=== PATIENT | female | born 1975 | race Caucasian/White ===

== ENCOUNTER 2017-10-30 02:51 | Emergency (ER) | payer MEDICARE ==
[~2017-10-30] VITALS: Ht 152.4 cm; Wt 59.4 kg
[~2017-10-30 02:51] MED LIST: ACETAMINOPHEN-1 EAC1 PO; ACID CONTROL20 MG; ALAVERT10 MG PO; ALBUTEROL INH; ALLERGY RELIEF10 M3 PO; AMBIEN 5 MG TABL5 M1 PO; BACTRIM DS TAB1 EACH PO; CARAFATE 1 GM TA1 G1 PO; CELEBREX 200 M200 M1 PO; CELECOXIB100 MG PO; CELEXA 20 MG TA20 M1; CLEOCIN HCL150 MG PO; CLEOCIN HCL300 MG PO; CLONAZEPAM 1 MG1 M1; COMBIVENT; CYCLOBENZAPRINE10 MG PO; D-20002000 UNIT; EXCEDRIN CAPLE1 EACH; FLEXERIL PO; FLONASE 0.05%50 MCG; FOLIC ACID1 MG PO; HYDROCODON-ACE1 EAC8 PO; HYDROCODONE-AP1 EAC6 PO; KEFLEX500 MG PO; LEVAQUIN 750 M750 MG PO; LEVOTHYROXIN0.112 M1 PO; LEVOTHYROXIN0.137 M1 PO; LIORESAL 10 MG10 MG PO; LOPRESSOR25 PO; MEDROLDOSEPACK PO; METHOTREXATE 22.5 M1 PER TUBE; METHOTREXATE 22.5 M1 PO; METOPROLOL SUCC25 M1 PO; NAPROSYN500 MG PO; NEURONTIN 300300 M1 PO; NORCO 5-325 TA1 EACH PO; OMEPRAZOLE20 MG PO; OMEPRAZOLE40 MG PO; ONDANSETRON HCL4 M2 PO; PAXIL10 MG PO; PERCOCET PO; PREDNISOLONE 5 M5 M1 PO; PREDNISONE 10 M10 M1 PO; PREDNISONE 10 M10 MG PO; PREDNISONE 5 MG5 M1 PO; PRILOSEC40 MG PO; PROAIR RESPICL90 MCG IH; SINGULAIR 10 MG10 M1; SPIRIVA INH; SPIRIVA18 MCG IH; SULFASALAZINE500 M4 PO; SULFAZINE EC500 MG; TOBRAMYCIN SULFA5 ML OPHTHALMIC; TOPROL XL25 MG; TRAMADOL 50 MG50 MG PO; ULTRAM50 MG PO; VENLAFAXIN75 MG/1 T2 PO; VENTOLIN HFA 1818 GM INH; VITAMIN D 5050000 I1; VITAMIN D 5050000 I1 PO; VOLTAREN GEL 1100 G2 TOP; ZANTAC 150MG T150 MG PO; ZPAK PO
[2017-10-30 04:30] LABS: ABSOLUTE BASOPHILS 0.1 thou/uL (0.0-0.2); ABSOLUTE EOSINOPHILS 0.4 thou/uL (0.0-0.7); ABSOLUTE LYMPHOCYTES 3.4 thou/uL (0.8-5.3); ABSOLUTE MONOCYTES 0.6 thou/uL (0.0-1.2); ABSOLUTE NEUTROPHILS 7.1 thou/uL (1.6-8.1); BASOPHILS 0.5 %; HEMATOCRIT 41.8 % (37.0-47.0); HEMOGLOBIN 14.4 gm/dL (12.0-15.0); LYMPHOCYTES 29.6 %; MCH 30.9 pg (26.0-34.0); MCHC 34.4 g/dL (28.0-37.0); MCV 89.8 fL (80.0-100.0); MONOCYTES 5.2 %; MPV 7.2 fl. (7.2-11.1); NUCLEATED RBCS 0 /100WBC; PLATELET COUNT* 333 thou/uL (150-400); POLYS 61.7 %; RBC 4.65 mil/uL (4.20-5.00); RDW-CV 13.8 % (10.5-14.5); WBC 11.5 thou/uL (4.0-11.0)
[2017-10-30 04:54] LABS: CALCIUM 8.7 mg/dL (8.5-10.1); CREATININE 1.1 mg/dL (0.6-1.3); POTASSIUM 3.7 mmol/L (3.5-5.1)
[2017-10-30 04:59] LABS: ALBUMIN 3.3 g/dL (3.4-5.0); TOTAL BILIRUBIN 0.2 mg/dL (<0.1-1.0); TOTAL PROTEIN 7.5 g/dL (6.4-8.2)
[2017-10-30 05:38] LABS: AMP/METHAMP POSITIVE (Negative); BARBITURATES Negative (Negative); BENZODIAZEPINES Negative (Negative); COCAINE Negative (Negative); METHADONE Negative (Negative); OPIATES Negative (Negative); PCP Negative (Negative); THC Negative (Negative)
[2017-10-30 05:50] LABS: URINE BILIRUBIN NEGATIVE (Negative); URINE BLOOD TRACE (Negative); URINE CLARITY CLEAR; URINE COLOR YELLOW; URINE GLUCOSE-RANDOM NEGATIVE (Negative); URINE KETONES NEGATIVE (Negative); URINE LEUKOCYTES-REFLEX NEGATIVE (Negative); URINE NITRITE-REFLEX NEGATIVE (Negative); URINE PROTEIN NEGATIVE (Negative); URINE SPECIFIC GRAVITY 1.015 (1.005-1.030); URINE UROBILINOGEN 0.2 E.U./dl (0.2-1.0)
[2017-10-30 06:11] VITALS: BP 124/84
--- NOTE | 2017-10-30 11:50 | EKG ---
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
== END 2017-10-30 06:11 | disposition home or self-care (01) ==
LOC: M.ERS 02:51
PROVIDERS: Personal Emergency Response Attendant
DX: R51 Headache (principal); E03.9 Hypothyroidism, unspecified; F41.9 Anxiety disorder, unspecified; M06.9 Rheumatoid arthritis, unspecified; I10 Essential (primary) hypertension; Z90.711 Acquired absence of uterus with remaining cervical stump

== ENCOUNTER 2017-12-25 14:56 | Emergency (ER) | payer MEDICARE ==
[~2017-12-25] VITALS: Ht 152.4 cm; Wt 59.4 kg
[2017-12-25] MEDS ORDERED: UNICOMPLEX M TA1 TA1 PO (15:09)
[2017-12-25 16:12] VITALS: BP 135/96
== END 2017-12-25 16:12 | disposition home or self-care (01) ==
LOC: M.ERS 14:56
DX: S60.211A Contusion of right wrist, initial encounter (principal); F41.9 Anxiety disorder, unspecified; E03.9 Hypothyroidism, unspecified; I10 Essential (primary) hypertension; M06.9 Rheumatoid arthritis, unspecified; Z90.711 Acquired absence of uterus with remaining cervical stump; Z88.6 Allergy status to analgesic agent; Z88.8 Allergy status to other drugs, medicaments and biological substances; F17.210 Nicotine dependence, cigarettes, uncomplicated; W22.8XXA Striking against or struck by other objects, initial encounter; Y93.89 Activity, other specified; Y92.89 Other specified places as the place of occurrence of the external cause; Y99.8 Other external cause status

== ENCOUNTER 2018-10-01 03:45 | Emergency (ER) | payer MEDICARE ==
[~2018-10-01] VITALS: Ht 154.9 cm; Wt 57.6 kg
[~2018-10-01 03:45] MED LIST changes: +UNICOMPLEX M TA1 TA1 PO
[2018-10-01] MEDS ORDERED: AZULFIDINE500 MG PO (03:53)
[2018-10-01] MEDS ORDERED: LAMICTAL (GREE1 EACH PO (03:55)
[2018-10-01] MEDS ORDERED: COLACE100 MG PO ×2 (03:55→03:56)
[2018-10-01] MEDS ORDERED: CLONAZEPAM 0.50.5 M1 PO (03:56)
[2018-10-01] MEDS ORDERED: ACCUNEB SO1.25 MG/1 INH (03:56)
[2018-10-01] MEDS ORDERED: NICOTINE TRANSD21 M1 (03:56)
[2018-10-01] MEDS ORDERED: VOLTAREN GEL 1100 G2 TOP (03:57)
[2018-10-01] MEDS ORDERED: NEURONTIN 300300 M1 PO (03:57)
[2018-10-01] MEDS ORDERED: SYNTHROID88 MCG PO (03:57)
[2018-10-01] MEDS ORDERED: SULFASALAZINE500 M4 PO (03:58)
[2018-10-01] MEDS ORDERED: PROAIR RESPICL90 MCG INH (03:58)
[2018-10-01 04:26] LABS: ABSOLUTE LYMPHOCYTES 2.8 thou/uL (0.8-5.3); ABSOLUTE MONOCYTES 0.5 thou/uL (0.0-1.2); ABSOLUTE NEUTROPHILS 2.7 thou/uL (1.6-8.1); BASOPHILS 0.8 %; EOSINOPHILS 0.1 %; HEMOGLOBIN 12.8 gm/dL (12.0-15.0); LYMPHOCYTES 45.6 %; MCH 29.5 pg (26.0-34.0); MCHC 32.8 g/dL (28.0-37.0); MCV 90.1 fL (80.0-100.0); MONOCYTES 8.4 %; MPV 6.4 fl. (7.2-11.1); NUCLEATED RBCS 0 /100WBC; PLATELET COUNT* 273 thou/uL (150-400); POLYS 45.1 %; RBC 4.33 mil/uL (4.20-5.00); RDW-CV 15.3 % (10.5-14.5); WBC 6.1 thou/uL (4.0-11.0)
[2018-10-01 04:45] LABS: URINE BILIRUBIN NEGATIVE (Negative); URINE BLOOD NEGATIVE (Negative); URINE CLARITY CLEAR; URINE COLOR YELLOW; URINE GLUCOSE-RANDOM NEGATIVE (Negative); URINE KETONES NEGATIVE (Negative); URINE PROTEIN 2+ (Negative); URINE SPECIFIC GRAVITY >= 1.030 (1.005-1.030); URINE UROBILINOGEN 0.2 E.U./dl (0.2-1.0)
[2018-10-01 04:51] LABS: CALCIUM 8.8 mg/dL (8.5-10.1); CREATININE 0.8 mg/dL (0.6-1.3); POTASSIUM 3.5 mmol/L (3.5-5.1)
[2018-10-01 04:53] LABS: URINE LEUKOCYTES-REFLEX 2+ (Negative); URINE NITRITE-REFLEX POSITIVE (Negative)
[2018-10-01 04:55] LABS: ALBUMIN 3.6 g/dL (3.4-5.0); TOTAL BILIRUBIN 0.3 mg/dL (<0.1-1.0); TOTAL PROTEIN 7.7 g/dL (6.4-8.2)
[2018-10-01] MEDS ORDERED: HYDROCODON-ACE1 EAC7 PO (05:22)
[2018-10-01] MEDS ORDERED: BACTRIM DS TAB1 EACH PO (05:22)
[2018-10-01] MEDS ORDERED: ZOFRAN4 MG PO (05:22)
[2018-10-01 05:31] VITALS: BP 129/77
[2018-10-01 06:23] LABS: SQUAMOUS >10 Many /LPF (0-3)
[2018-10-01 06:24] LABS: CASTS None Seen /LPF (None Seen); MUCUS >6 Heavy strn/LPF (None Seen); URINE WBC-REFLEX >25 Many /HPF (0-5)
[2018-10-01 06:25] LABS: BACTERIA-REFLEX >30 Many /HPF (None Seen); CRYSTALS None Seen /LPF (None Seen); URINE RBC None Seen /HPF (0-2)
== END 2018-10-01 05:35 | disposition home or self-care (01) ==
LOC: M.ERS 03:45
PROVIDERS: Emergency Medicine
DX: N39.0 Urinary tract infection, site not specified (principal); R11.2 Nausea with vomiting, unspecified; E03.9 Hypothyroidism, unspecified; F41.9 Anxiety disorder, unspecified; M06.9 Rheumatoid arthritis, unspecified; I10 Essential (primary) hypertension; F17.210 Nicotine dependence, cigarettes, uncomplicated; Z98.890 Other specified postprocedural states; Z90.711 Acquired absence of uterus with remaining cervical stump; Z88.6 Allergy status to analgesic agent; Z88.8 Allergy status to other drugs, medicaments and biological substances

== ENCOUNTER 2019-10-19 18:57 | Emergency (ER) | payer MEDICARE, MEDICAID ==
[~2019-10-19] VITALS: Ht 152.4 cm; Wt 68.0 kg
[~2019-10-19 18:57] MED LIST changes: +ACCUNEB SO1.25 MG/1 INH; +AZULFIDINE500 MG PO; +CLONAZEPAM 0.50.5 M1 PO; +COLACE100 MG PO; +HYDROCODON-ACE1 EAC7 PO; +LAMICTAL (GREE1 EACH PO; +NICOTINE TRANSD21 M1; +PROAIR RESPICL90 MCG INH; +SYNTHROID88 MCG PO; +ZOFRAN4 MG PO
[2019-10-19] MEDS ORDERED: NYSTATIN100000 UNI SW&SWALLOW (19:17)
[2019-10-19 19:27] LABS: ABSOLUTE BASOPHILS 0.1 thou/uL (0.0-0.2); ABSOLUTE EOSINOPHILS 0.3 thou/uL (0.0-0.7); ABSOLUTE LYMPHOCYTES 3.1 thou/uL (0.8-5.3); ABSOLUTE MONOCYTES 0.7 thou/uL (0.0-1.2); ABSOLUTE NEUTROPHILS 8.4 thou/uL (1.6-8.1); BASOPHILS 0.8 %; HEMATOCRIT 46.1 % (37.0-47.0); HEMOGLOBIN 15.8 gm/dL (12.0-15.0); LYMPHOCYTES 24.7 %; MCH 30.7 pg (26.0-34.0); MCHC 34.4 g/dL (28.0-37.0); MCV 89.2 fL (80.0-100.0); MONOCYTES 5.7 %; MPV 6.5 fl. (7.2-11.1); NUCLEATED RBCS 0 /100WBC; PLATELET COUNT* 412 thou/uL (150-400); POLYS 66.8 %; RBC 5.17 mil/uL (4.20-5.00); RDW-CV 13.4 % (10.5-14.5); WBC 12.5 thou/uL (4.0-11.0)
[2019-10-19 19:45] LABS: CREATININE 0.9 mg/dL (0.6-1.3); POTASSIUM 3.6 mmol/L (3.5-5.1)
[2019-10-19 19:50] LABS: ALBUMIN 4.1 g/dL (3.4-5.0); TOTAL BILIRUBIN 0.4 mg/dL (<0.1-1.0); TOTAL PROTEIN 8.8 g/dL (6.4-8.2)
[2019-10-19 19:59] LABS: URINE BLOOD TRACE (Negative); URINE CLARITY CLEAR; URINE COLOR YELLOW; URINE GLUCOSE-RANDOM NEGATIVE (Negative); URINE KETONES TRACE (Negative); URINE LEUKOCYTES-REFLEX NEGATIVE (Negative); URINE NITRITE-REFLEX NEGATIVE (Negative); URINE PROTEIN TRACE (Negative); URINE SPECIFIC GRAVITY >= 1.030 (1.005-1.030); URINE UROBILINOGEN 0.2 E.U./dl (0.2-1.0)
[2019-10-19 20:00] LABS: ICTOTEST (BILI CONFIRMATORY) Negative (Negative); URINE BILIRUBIN 1+ (Negative)
[2019-10-19] MEDS ORDERED: REGLAN 5 MG TAB5 MG PO ×2 (20:29→20:33)
[2019-10-19] MEDS ORDERED: FLUCONAZOLE200 MG PO (20:29)
[2019-10-19] MEDS ORDERED: ZOFRAN ODT4 MG PO (20:29)
[2019-10-19] MEDS ORDERED: REGLAN 10 MG TA10 MG PO (20:31)
[2019-10-19 20:44] VITALS: BP 138/87
== END 2019-10-19 20:45 | disposition home or self-care (01) ==
LOC: M.ERS 18:57
PROVIDERS: Physician Assistant
DX: B37.0 Candidal stomatitis (principal); R11.2 Nausea with vomiting, unspecified; I10 Essential (primary) hypertension; E03.9 Hypothyroidism, unspecified; M06.9 Rheumatoid arthritis, unspecified; F41.9 Anxiety disorder, unspecified; F17.210 Nicotine dependence, cigarettes, uncomplicated; Z98.51 Tubal ligation status; Z98.890 Other specified postprocedural states; Z90.710 Acquired absence of both cervix and uterus; Z88.6 Allergy status to analgesic agent; Z88.8 Allergy status to other drugs, medicaments and biological substances

== ENCOUNTER 2020-02-10 17:12 | Emergency (ER) | payer MEDICARE, MEDICAID ==
[~2020-02-10] VITALS: Ht 152.4 cm; Wt 77.1 kg
[~2020-02-10 17:12] MED LIST changes: +FLUCONAZOLE200 MG PO; +NYSTATIN100000 UNI SW&SWALLOW; +REGLAN 10 MG TA10 MG PO; +REGLAN 5 MG TAB5 MG PO; +ZOFRAN ODT4 MG PO
[2020-02-10] MEDS ORDERED: NAPROSYN500 MG PO (18:49)
[2020-02-10] MEDS ORDERED: TYLENOL WITH CO1 TA1 PO (18:49)
[2020-02-10 19:27] VITALS: BP 135/78
== END 2020-02-10 19:28 | disposition home or self-care (01) ==
LOC: M.ERS 17:12
DX: S90.32XA Contusion of left foot, initial encounter (principal); E03.9 Hypothyroidism, unspecified; I10 Essential (primary) hypertension; M06.9 Rheumatoid arthritis, unspecified; Z98.51 Tubal ligation status; Z98.890 Other specified postprocedural states; Z90.710 Acquired absence of both cervix and uterus; W22.8XXA Striking against or struck by other objects, initial encounter; Y93.89 Activity, other specified; Y92.89 Other specified places as the place of occurrence of the external cause; Y99.8 Other external cause status

== ENCOUNTER 2020-11-18 02:24 | Emergency (ER) | payer MEDICARE, MEDICAID ==
[~2020-11-18] VITALS: Ht 152.4 cm; Wt 63.5 kg
[~2020-11-18 02:24] MED LIST changes: +TYLENOL WITH CO1 TA1 PO
[2020-11-18 03:38] LABS: URINE BILIRUBIN NEGATIVE (Negative); URINE BLOOD 1+ (Negative); URINE CLARITY CLEAR; URINE COLOR YELLOW; URINE GLUCOSE-RANDOM NEGATIVE (Negative); URINE KETONES NEGATIVE (Negative); URINE LEUKOCYTES-REFLEX TRACE (Negative); URINE NITRITE-REFLEX NEGATIVE (Negative); URINE PROTEIN NEGATIVE (Negative); URINE UROBILINOGEN 0.2 E.U./dl (0.2-1.0)
[2020-11-18 04:03] LABS: HEMATOCRIT 38.1 % (37.0-47.0); HEMOGLOBIN 12.5 gm/dL (12.0-15.0); MCH 28.6 pg (26.0-34.0); MCHC 32.9 g/dL (28.0-37.0); MCV 86.8 fL (80.0-100.0); MPV 6.5 fl. (7.2-11.1); RBC 4.39 mil/uL (4.20-5.00); RDW-CV 13.5 % (10.5-14.5); WBC 12.9 thou/uL (4.0-11.0)
[2020-11-18 04:04] LABS: CASTS None Seen /LPF (None Seen); SQUAMOUS >10 Many /LPF (0-3)
[2020-11-18 04:05] LABS: BACTERIA-REFLEX 1-9 Few /HPF (None Seen); CRYSTALS None Seen /LPF (None Seen); URINE RBC 3-10 Few /HPF (0-2)
[2020-11-18 04:13] LABS: CALCIUM 8.6 mg/dL (8.5-10.1); CREATININE 0.7 mg/dL (0.6-1.3); POTASSIUM 3.4 mmol/L (3.5-5.1)
[2020-11-18] MEDS ORDERED: SULFASALAZINE500 M5 PO (04:46)
[2020-11-18] MEDS ORDERED: METHOTREXATE 22.5 MG PO (04:47)
[2020-11-18] MEDS ORDERED: PAROXETINE HCL20 MG PO (04:48)
[2020-11-18 05:19] VITALS: BP 108/68
[2020-11-19] MEDS ORDERED: LAMICTAL150 MG PO (03:22)
[2020-11-19] MEDS ORDERED: CLONAZEPAM 0.50.5 M1 PO (03:25)
== END 2020-11-18 05:19 | disposition home or self-care (01) ==
LOC: M.ERS 02:24
PROVIDERS: Personal Emergency Response Attendant
DX: J98.8 Other specified respiratory disorders (principal); E86.0 Dehydration; Z20.822 Contact with and (suspected) exposure to COVID-19; I10 Essential (primary) hypertension; M06.9 Rheumatoid arthritis, unspecified; E03.9 Hypothyroidism, unspecified; F17.210 Nicotine dependence, cigarettes, uncomplicated; Z98.51 Tubal ligation status; Z98.890 Other specified postprocedural states; Z90.710 Acquired absence of both cervix and uterus; Z88.6 Allergy status to analgesic agent; Z88.8 Allergy status to other drugs, medicaments and biological substances

== ENCOUNTER 2020-11-18 19:03 | Inpatient (IN) | payer MEDICARE, MEDICAID ==
[~2020-11-18] VITALS: Ht 152.4 cm; Wt 71.7 kg
[~2020-11-18 19:03] MED LIST changes: +METHOTREXATE 22.5 MG PO; +PAROXETINE HCL20 MG PO; +SULFASALAZINE500 M5 PO
[2020-11-18 19:23] VITALS: BP 130/84
[2020-11-18 20:52] LABS: ABSOLUTE BASOPHILS 0.1 thou/uL (0.0-0.2); ABSOLUTE EOSINOPHILS 0.3 thou/uL (0.0-0.7); ABSOLUTE LYMPHOCYTES 2.3 thou/uL (0.8-5.3); ABSOLUTE MONOCYTES 0.5 thou/uL (0.0-1.2); ABSOLUTE NEUTROPHILS 12.3 thou/uL (1.6-8.1); BASOPHILS 0.7 %; EOSINOPHILS 1.9 %; HEMOGLOBIN 12.4 gm/dL (12.0-15.0); LYMPHOCYTES 14.6 %; MCH 28.6 pg (26.0-34.0); MCHC 32.6 g/dL (28.0-37.0); MCV 87.6 fL (80.0-100.0); MONOCYTES 3.5 %; MPV 6.8 fl. (7.2-11.1); NUCLEATED RBCS 0 /100WBC; PLATELET COUNT* 270 thou/uL (150-400); POLYS 79.3 %; RBC 4.33 mil/uL (4.20-5.00); RDW-CV 13.4 % (10.5-14.5); WBC 15.5 thou/uL (4.0-11.0)
[2020-11-18 20:54] LABS: BE -1.8 mmol/L (-2 to +3); PCO2 37.3 mmHg (35.0-45.0)
[2020-11-18 20:57] LABS: CALCIUM 8.8 mg/dL (8.5-10.1); CREATININE 0.6 mg/dL (0.6-1.3); POTASSIUM 3.6 mmol/L (3.5-5.1)
[2020-11-18 21:01] LABS: ALBUMIN 2.8 g/dL (3.4-5.0); TOTAL BILIRUBIN 0.2 mg/dL (<0.1-1.0); TOTAL PROTEIN 7.3 g/dL (6.4-8.2)
[2020-11-18 22:14] LABS: URINE BILIRUBIN NEGATIVE (Negative); URINE BLOOD NEGATIVE (Negative); URINE CLARITY CLEAR; URINE COLOR YELLOW; URINE GLUCOSE-RANDOM NEGATIVE (Negative); URINE KETONES NEGATIVE (Negative); URINE LEUKOCYTES-REFLEX NEGATIVE (Negative); URINE NITRITE-REFLEX NEGATIVE (Negative); URINE PROTEIN NEGATIVE (Negative); URINE SPECIFIC GRAVITY 1.015 (1.005-1.030); URINE UROBILINOGEN 0.2 E.U./dl (0.2-1.0)
[2020-11-18 23:45] VITALS: BP 124/72
[2020-11-19 00:15] VITALS: BP 114/58
[2020-11-19] MEDS ORDERED: LAMICTAL150 MG PO (03:22)
[2020-11-19] MEDS ORDERED: CLONAZEPAM 0.50.5 M1 PO (03:25)
[2020-11-19 04:47] VITALS: BP 109/67
[2020-11-19 08:00] VITALS: BP 128/71
[2020-11-19 11:55] VITALS: BP 104/66
[2020-11-19 13:44] LABS: ABSOLUTE BASOPHILS 0.1 thou/uL (0.0-0.2); ABSOLUTE EOSINOPHILS 0.3 thou/uL (0.0-0.7); ABSOLUTE LYMPHOCYTES 2.4 thou/uL (0.8-5.3); ABSOLUTE MONOCYTES 0.5 thou/uL (0.0-1.2); ABSOLUTE NEUTROPHILS 7.8 thou/uL (1.6-8.1); BASOPHILS 0.7 %; EOSINOPHILS 2.7 %; HEMATOCRIT 36.9 % (37.0-47.0); LYMPHOCYTES 21.9 %; MCH 28.3 pg (26.0-34.0); MCHC 32.6 g/dL (28.0-37.0); MCV 86.9 fL (80.0-100.0); MONOCYTES 4.8 %; MPV 6.7 fl. (7.2-11.1); NUCLEATED RBCS 0 /100WBC; PLATELET COUNT* 302 thou/uL (150-400); POLYS 69.9 %; RBC 4.25 mil/uL (4.20-5.00); RDW-CV 13.7 % (10.5-14.5); WBC 11.2 thou/uL (4.0-11.0)
[2020-11-19 13:59] LABS: ALBUMIN 2.6 g/dL (3.4-5.0); CALCIUM 8.4 mg/dL (8.5-10.1); CREATININE 0.6 mg/dL (0.6-1.3); POTASSIUM 3.8 mmol/L (3.5-5.1); TOTAL BILIRUBIN 0.3 mg/dL (<0.1-1.0); TOTAL PROTEIN 6.9 g/dL (6.4-8.2)
--- NOTE | 2020-11-19 15:31 | EKG ---
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 : 1975 Requested By: Irene Mayorga Order Number: [id number] MD: Mook Patel Measurements Intervals [place] Rate: 95 P: 50 ID: [id number] QRS: 25 QRSD: 80 T: 46 QT: 323 QTc: 406 Interpretive Statements Sinus rhythm Borderline short ID interval Probable left atrial enlargement Low voltage, precordial leads Compared to ECG 10/30/2017 02:57:27 Low QRS voltage now present Electronically Signed On 11-19-2020 15:31:02 CUPOLA REPAIRER by Mook Patel [email or web address] <ELECTRONICALLY SIGNED> By: Mook Patel MD, FACC 11/19/20 1531 18 18 Mook Patel MD, FAC /EPI
--- NOTE | 2020-11-19 15:41 | 2DMMODE ---
[place] [address] 2 D/M-MODE ECHOCARDIOGRAM Name: NATALIA CABRERA Room: [address] IN [place].#: [id number] Admission: 11/18/20 Attend Phys: Marilyn Reid, Discharge: Date of : 73 Date of Service: 11/19/20 1540 Report #: [id number] THIS REPORT FOR: cc: SHELBY - No family physician/PCP SHELBY - No family physician/PCP Mook Patel MD [facility] ~ APPROVED REPORT Study performed: 11/19/2020 14:56:24 EXAM: Comprehensive 2D, Doppler, and color-flow Echocardiogram Patient Location: In-Patient Room #: 209 Status: routine BSA: 1.70 HR: 88 bpm BP: 104/66 mmHg Rhythm: NSR Other Information Study Quality: Good Indications Dyspnea 2D Dimensions IVSd: 10.64 (7-11mm) LVOT Diam: 18.35 (18-24mm) LVDd: 48.07 mm PWd: 9.62 (7-11mm) Ascending Ao: 28.86 (22-36mm) LVDs: 32.57 (25-40mm) Aortic Root: 26.06 mm Volumes Left Atrial Volume (Systole) LA ESV Index: 19.90 mL/m2 Aortic Valve AoV Peak Bubba.: 1.36 m/s AO Peak Gr.: 7.36 mmHg LVOT Max P.44 mmHg AO Mean Gr.: 4.13 mmHg LVOT Mean P.12 mmHg LVOT Max V: 1.05 m/s AO V2 VTI: 25.60 cm LVOT Mean V: 0.66 m/s VERNELL (VTI): 2.06 cm2 LVOT V1 VTI: 19.91 [place] [address] 2 D/M-MODE ECHOCARDIOGRAM Name: NATALIA CABRERA Room: [address] IN ..#: [id number] Admission: 11/18/20 Attend Phys: Marilyn Reid, Discharge: Date of : 73 Date of Service: 11/19/20 1540 Report #: [id number] Mitral Valve E/A Ratio: 1.26 MV Decel. Time: 186.47 ms MV E Max Bubba.: 1.14 m/s MV PHT: 54.08 ms MVA (PHT): 4.07 cm2 TDI E/Lateral E': 8.14 E/Medial E': 8.14 Medial E' Bubba.: 0.14 m/s Lateral E' Bubba.: 0.14 m/s Pulmonary Valve PV Peak Bubba.: 0.92 m/s PV Peak Gr.: 3.36 mmHg Tricuspid Valve RAP Estimate: 5.00 mmHg TR Peak Gr.: 26.86 mmHg RVSP: 32.00 mmHg PA Pressure: 32.00 mmHg Left Ventricle The left ventricle is normal size. There is normal LV segmental wall motion. There is normal left ventricular wall thickness. Left ventricular systolic function is normal. The left ventricular ejection fraction is within the normal range. LVEF is 60-65%. The left ventricular diastolic function is normal. Right Ventricle The right ventricle is normal size. The right ventricular systolic function is normal. Atria The left atrium size is normal. The right atrium size is normal. Aortic Valve The aortic valve is normal in structure. No aortic regurgitation is present. There is no aortic valvular stenosis. Mitral Valve The mitral valve is normal in structure. Trace mitral regurgitation. No evidence of mitral valve stenosis. Tricuspid Valve The tricuspid valve is normal in structure. Trace tricuspid regurgitation. [place] [address] 2 D/M-MODE ECHOCARDIOGRAM Name: NATALIA CABRERA Room: [address] IN ..#: [id number] Admission: 11/18/20 Attend Phys: Marilyn Reid, Discharge: Date of : 73 Date of Service: 11/19/20 1540 Report #: [id number] Pulmonic Valve The pulmonary valve is normal in structure. There is no pulmonic valvular regurgitation. Great Vessels The aortic root is normal in size. IVC is normal in size and collapses >50% with inspiration. Pericardium There is no pericardial effusion. <Conclusion> The left ventricle is normal size. There is normal left ventricular wall thickness. Left ventricular systolic function is normal. The left ventricular ejection fraction is within the normal range. LVEF is 60-65%. The left ventricular diastolic function is normal. The right ventricle is normal size. The left atrium size is normal. The aortic valve is normal in structure. The mitral valve is normal in structure. Trace mitral regurgitation. The tricuspid valve is normal in structure. IVC is normal in size and collapses >50% with inspiration. There is no pericardial effusion. There is normal LV segmental wall motion. <ELECTRONICALLY SIGNED> By: Mook Patel MD, FACC 11/19/20 1540 1540 1540 Mook Patel MD, FACC /INF
--- NOTE | 2020-11-19 16:30 | CON ---
[address] [address] CONSULTATION Name: NATALIA CABRERA Room: [address] IN M.R.#: [id number] Admission: 11/18/20 Attend Phys: Marilyn Reid MD Discharge: Date of : 73 Report #: [id number] THIS REPORT FOR: cc: SHELBY - No family physician/PCP FAM - No family physician/PCP ~ Eddi Monge MD DATE OF SERVICE: 11/19/2020 REQUESTING PHYSICIAN: Dr. Sylvester Alexis. INDICATION FOR CONSULTATION: Pulmonary infiltrates and shortness of breath. HISTORY OF PRESENT ILLNESS: This is a 45-year-old female. She is an active smoker and has been smoking for several decades, is currently smoking about a pack a day. 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 She previously was diagnosed with interstitial pneumonia. 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 However, as below, I do not see findings consistent with this on her CT performed in 2015 or a chest x-ray was performed in 2018. The patient has not been having increasing shortness of breath for the last several days. She does report that she also has had a significant cough. She does report of sputum production. She was not able to describe the sputum. She does report that she had chills and fatigue, but does not state that she recorded any fever. She came to the emergency room, was subsequently discharged, but came back with persistent complaints and this time was admitted. The patient currently is on 3 liters nasal cannula. She has had low-grade elevation in temperature to 37.[address] chest does show fairly extensive interstitial infiltrates, which have an upper lobe predominance. Her COVID-19 antigen was negative, the PCR is pending. She does not report swelling of lower extremities. There is no calf pain. She at this time, is answering to the negative for 12 questions for review of systems. PAST MEDICAL HISTORY: Rheumatoid arthritis, does receive her Humira injections and therefore is immune suppressed; interstitial pneumonitis 11 years ago, not fully clear to me if this refers to desquamative interstitial pneumonitis; history of lung nodules, adrenal mass, tubal ligation, 2 C-sections, hysterectomy, hypothyroidism, hypertension, borderline diabetes. I do not have a measure of left ventricular ejection fraction [place] [address] CONSULTATION Name: NATALIA CABRERA Room: [address] IN [facility].#: [id number] Admission: 11/18/20 Attend Phys: Marilyn Reid MD Discharge: Date of : 73 Report #: [id number] SOCIAL HISTORY: Extensive history of smoking several decades, still smoking 1 pack a day. No known history of heavy alcohol use or illegal drug use. CURRENT MEDICATIONS: List in [facility] reviewed. HOME MEDICATIONS: List also in [facility] reviewed. ALLERGIES: DARVOCET, NYSTATIN AND MEPERIDINE. FAMILY HISTORY: There is no known history of COVID-19 in her family. PHYSICAL EXAMINATION: GENERAL: She was alert, awake and oriented; however, provided a rather limited history. Did not appear to be in any distress. VITAL SIGNS: Has a pulse of 96 with a blood pressure of 104/66. She is on 3 liters nasal cannula, previously O2 saturation 91% on this therapy, but now coming up to 98, respiratory rate mildly elevated to 20. Temperature this morning 37.7. HEENT: Head is normocephalic and atraumatic. Pupils are equal and reactive. NECK: Does not show raised JVP, asymmetry, mass or lymph nodes. CHEST: Symmetrical expansion on inspection and palpation. On auscultation, breath sounds are bilaterally equal. There are occasional scattered rales. HEART: Regular. There is no murmur. ABDOMEN: Soft and nontender. EXTREMITIES: Lower extremities show no edema, no calf tenderness. SKIN: Dry and intact. NEUROLOGICAL: Moves all extremities bilaterally equally and spontaneously with no focal deficit identified. LABORATORY DATA: The patient's lab work as well as CT chest which is without contrast and arterial blood gases as well as chest x-ray in [facility] reviewed. ASSESSMENT AND PLAN: 1. Acute respiratory insufficiency whilst the possibility of recurrence of interstitial pneumonitis cannot be completely ruled out. It appears more likely to me that we are dealing with an acute process, likely either infectious or pulmonary edema can also not be fully ruled out. 2. Interstitial pulmonary infiltrates. 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 At this time, while I would continue with corticosteroids, I would evaluate more for an acute process. I did cut down the steroid dose. I ordered repeat labs and a chest x-ray. We will reassess after this. Meanwhile more cultures and serologies are sent. We will also do an [address] [address] CONSULTATION Name: NATALIA CABRERA Room: [address] IN [place]#: [id number] Admission: 11/18/20 Attend Phys: Marilyn Reid MD Discharge: Date of : 73 Report #: [id number] echo. I discontinued IV fluids considering the patient is immune suppressed. If the chest x-ray today is not better, then I will be inclined to broaden antibiotics, to add pseudomonas coverage possibly by switching ceftriaxone over to cefepime. 3. Bronchospasm/suspected underlying chronic obstructive pulmonary disease. I feel that there is a component of this, therefore I did order Naresh and daiana Krueger and for this reason, I do recommend that if her COVID PCR is not back soon then she be transferred over to a negative pressure room. Will need a pulmonary function test as an outpatient later. Discussion regarding steroid as above. 4. History of rheumatoid arthritis and therefore immune suppressed as on Humira injections. 5. Active smoker. 6. Deep vein thrombosis prophylaxis/evaluation for thromboembolic phenomena/evaluation for cardiac function. I ordered an echo. I also ordered a D-dimer, currently on Lovenox prophylactic dose. Will consider obtaining a CTA chest if there is a significant elevation in right heart pressures and if the D-dimer is elevated. Thanks for this consultation. <ELECTRONICALLY SIGNED> By: Eddi Monge MD 11/19/20 1630 1326 1622Aquinton Monge MD /nt
[2020-11-19 16:39] VITALS: BP 101/55
[2020-11-19 19:50] VITALS: BP 97/53
[2020-11-19 22:03] LABS: AMP/METHAMP POSITIVE (Negative); BARBITURATES Negative (Negative); BENZODIAZEPINES Negative (Negative); COCAINE Negative (Negative); METHADONE Negative (Negative); OPIATES Negative (Negative); PCP Negative (Negative); THC Negative (Negative)
[2020-11-20] VITALS (8 sets, daily range): BP systolic 95–160; BP diastolic 55–77
[2020-11-20 03:06] LABS: GLYCOHEMOGLOBIN (HGB A1C) 6.1 % (4.8-5.6)
[2020-11-20 04:38] LABS: ABSOLUTE LYMPHOCYTES 1.1 thou/uL (0.8-5.3); ABSOLUTE MONOCYTES 0.1 thou/uL (0.0-1.2); BASOPHILS 0.1 %; HEMATOCRIT 34.9 % (37.0-47.0); HEMOGLOBIN 11.5 gm/dL (12.0-15.0); LYMPHOCYTES 12.2 %; MCH 28.9 pg (26.0-34.0); MCHC 33.1 g/dL (28.0-37.0); MCV 87.2 fL (80.0-100.0); MONOCYTES 1.6 %; MPV 6.9 fl. (7.2-11.1); NUCLEATED RBCS 0 /100WBC; PLATELET COUNT* 307 thou/uL (150-400); POLYS 86.1 %; RDW-CV 13.6 % (10.5-14.5); WBC 9.3 thou/uL (4.0-11.0)
[2020-11-20 05:09] LABS: CREATININE 0.6 mg/dL (0.6-1.3); POTASSIUM 4.1 mmol/L (3.5-5.1)
[2020-11-20] MEDS ORDERED: VOLTAREN GEL 1100 G1 TOP (13:13)
[2020-11-20] MEDS ORDERED: DIFLUCAN100 MG PO (13:18)
[2020-11-20] MEDS ORDERED: LIDOCAINE 2%2 %/5 GM TOP (13:19)
[2020-11-20] MEDS ORDERED: PROAIR HFA8.5 GM INH (13:20)
[2020-11-20] MEDS ORDERED: MELOXICAM15 MG PO (13:21)
[2020-11-20] MEDS ORDERED: GABAPENTIN100 MG PO (13:22)
[2020-11-20] MEDS ORDERED: LEVO-T100 MCG PO (13:22)
[2020-11-20] MEDS ORDERED: PRILOSEC10 MG PO (13:23)
[2020-11-20] MEDS ORDERED: HUMIRA40 MG/0.1 SUBQ (13:25)
[2020-11-20] MEDS ORDERED: VITAMIN D3100 MCG PO (13:37)
[2020-11-20 15:31] LABS: INFLUENZA A ANTIGEN Positive (Negative); INFLUENZA B ANTIGEN Negative (Negative)
[2020-11-21] VITALS (7 sets, daily range): BP systolic 106–133; BP diastolic 53–79
[2020-11-21 04:27] LABS: HEMATOCRIT 33.2 % (37.0-47.0); HEMOGLOBIN 10.9 gm/dL (12.0-15.0); MCHC 32.8 g/dL (28.0-37.0); MCV 88.2 fL (80.0-100.0); MPV 6.7 fl. (7.2-11.1); NUCLEATED RBCS 0 /100WBC; PLATELET COUNT* 345 thou/uL (150-400); RBC 3.76 mil/uL (4.20-5.00); RDW-CV 13.3 % (10.5-14.5)
[2020-11-21 04:41] LABS: WBC 26.9 thou/uL (4.0-11.0)
[2020-11-21 04:58] LABS: ALBUMIN 2.6 g/dL (3.4-5.0); CALCIUM 8.7 mg/dL (8.5-10.1); CREATININE 0.8 mg/dL (0.6-1.3); POTASSIUM 3.4 mmol/L (3.5-5.1); TOTAL BILIRUBIN 0.2 mg/dL (<0.1-1.0); TOTAL PROTEIN 6.9 g/dL (6.4-8.2)
[2020-11-21 05:58] LABS: ABSOLUTE LYMPHOCYTES 3.8 thou/uL (0.8-5.3); ABSOLUTE MONOCYTES 1.3 thou/uL (0.0-1.2); ABSOLUTE NEUTROPHILS 21.8 thou/uL (1.6-8.1)
[2020-11-21 05:59] LABS: ANISOCYTOSIS 1+; PLATELET ESTIMATE ADEQUATE; POIKILOCYTOSIS 1+
[2020-11-22 03:42] LABS: ABSOLUTE LYMPHOCYTES 1.7 thou/uL (0.8-5.3); RDW-CV 13.7 % (10.5-14.5)
[2020-11-22 03:55] VITALS: BP 111/64
[2020-11-22 04:03] LABS: ALBUMIN 2.5 g/dL (3.4-5.0); CALCIUM 8.5 mg/dL (8.5-10.1); CREATININE 0.9 mg/dL (0.6-1.3); MAGNESIUM 1.8 mg/dL (1.8-2.4); POTASSIUM 3.7 mmol/L (3.5-5.1); TOTAL BILIRUBIN 0.1 mg/dL (<0.1-1.0); TOTAL PROTEIN 6.5 g/dL (6.4-8.2)
[2020-11-22 04:08] LABS: ABSOLUTE MONOCYTES 0.5 thou/uL (0.0-1.2); ABSOLUTE NEUTROPHILS 16.2 thou/uL (1.6-8.1); BASOPHILS 0.1 %; HEMATOCRIT 31.6 % (37.0-47.0); HEMOGLOBIN 10.4 gm/dL (12.0-15.0); LYMPHOCYTES 9.3 %; MCH 28.9 pg (26.0-34.0); MCHC 32.9 g/dL (28.0-37.0); MCV 87.6 fL (80.0-100.0); MONOCYTES 2.6 %; MPV 6.8 fl. (7.2-11.1); NUCLEATED RBCS 0 /100WBC; PLATELET COUNT* 331 thou/uL (150-400); RBC 3.61 mil/uL (4.20-5.00); WBC 18.4 thou/uL (4.0-11.0)
[2020-11-22 08:00] VITALS: BP 95/49
[2020-11-22] MEDS ORDERED: TAMIFLU75 MG PO (08:05)
[2020-11-22] MEDS ORDERED: LEVOFLOXACIN750 MG PO (08:05)
[2020-11-22] MEDS ORDERED: PREDNISONE 10 M10 MG PO (08:06)
[2020-11-22 13:55] VITALS: BP 95/49
[2020-11-22 15:24] VITALS: BP 95/49
[2020-11-25 02:06] LABS: MYCOPLASMA PNEUMONIA IgG 1852 U/mL (0-99); MYCOPLASMA PNEUMONIA IgM <770 U/mL (0-769)
== END 2020-11-22 14:25 | disposition home or self-care (01) | DRG 177 ==
LOC: M.ERS 19:03 → M.TBA-ER 22:42 → M.2W 22:42
PROVIDERS: Internal Medicine; Internal Medicine Critical Care Medicine; Personal Emergency Response Attendant; ADMIT Internal Medicine; ATTEND Internal Medicine
PROC: B54NZZA Ultrasonography of Left Upper Extremity Veins, Guidance (ICD-10-PCS; principal; 2020-11-20)
PROC: 05HF33Z Insertion of Infusion Device into Left Cephalic Vein, Percutaneous Approach (ICD-10-PCS; principal; 2020-11-20)
DX: J15.6 Pneumonia due to other Gram-negative bacteria (principal); J96.20 Acute and chronic respiratory failure, unspecified whether with hypoxia or hypercapnia; J10.01 Influenza due to other identified influenza virus with the same other identified influenza virus pneumonia; F17.210 Nicotine dependence, cigarettes, uncomplicated; E03.9 Hypothyroidism, unspecified; F41.9 Anxiety disorder, unspecified; M06.9 Rheumatoid arthritis, unspecified; Z20.822 Contact with and (suspected) exposure to COVID-19; Z79.899 Other long term (current) drug therapy; Z90.710 Acquired absence of both cervix and uterus; Z88.8 Allergy status to other drugs, medicaments and biological substances; Z28.21 Immunization not carried out because of patient refusal

== ENCOUNTER 2021-04-10 19:07 | Emergency (ER) | payer MEDICARE, MEDICAID ==
[~2021-04-10] VITALS: Ht 152.4 cm; Wt 69.4 kg
[~2021-04-10 19:07] MED LIST changes: +DIFLUCAN100 MG PO; +GABAPENTIN100 MG PO; +HUMIRA40 MG/0.1 SUBQ; +LAMICTAL150 MG PO; +LEVO-T100 MCG PO; +LEVOFLOXACIN750 MG PO; +LIDOCAINE 2%2 %/5 GM TOP; +MELOXICAM15 MG PO; +PRILOSEC10 MG PO; +PROAIR HFA8.5 GM INH; +TAMIFLU75 MG PO; +VITAMIN D3100 MCG PO; +VOLTAREN GEL 1100 G1 TOP
[2021-04-10 21:01] LABS: URINE BILIRUBIN NEGATIVE (Negative); URINE BLOOD TRACE (Negative); URINE CLARITY CLEAR; URINE COLOR YELLOW; URINE GLUCOSE-RANDOM NEGATIVE (Negative); URINE KETONES NEGATIVE (Negative); URINE LEUKOCYTES-REFLEX NEGATIVE (Negative); URINE NITRITE-REFLEX NEGATIVE (Negative); URINE PROTEIN TRACE (Negative); URINE UROBILINOGEN 0.2 E.U./dl (0.2-1.0)
[2021-04-10 21:33] LABS: ABSOLUTE BASOPHILS 0.1 thou/uL (0.0-0.2); ABSOLUTE EOSINOPHILS 0.5 thou/uL (0.0-0.7); ABSOLUTE LYMPHOCYTES 2.7 thou/uL (0.8-5.3); ABSOLUTE MONOCYTES 0.5 thou/uL (0.0-1.2); ABSOLUTE NEUTROPHILS 3.3 thou/uL (1.6-8.1); BASOPHILS 0.9 %; EOSINOPHILS 6.6 %; HEMATOCRIT 44.6 % (37.0-47.0); HEMOGLOBIN 15.3 gm/dL (12.0-15.0); LYMPHOCYTES 38.5 %; MCH 29.9 pg (26.0-34.0); MCHC 34.4 g/dL (28.0-37.0); MCV 86.9 fL (80.0-100.0); MPV 6.6 fl. (7.2-11.1); NUCLEATED RBCS 0 /100WBC; PLATELET COUNT* 213 thou/uL (150-400); RBC 5.13 mil/uL (4.20-5.00); RDW-CV 14.8 % (10.5-14.5)
[2021-04-10 21:42] LABS: CALCIUM 8.5 mg/dL (8.5-10.1); CREATININE 0.8 mg/dL (0.6-1.3); POTASSIUM 3.7 mmol/L (3.5-5.1)
[2021-04-10 21:47] LABS: ALBUMIN 3.6 g/dL (3.4-5.0); TOTAL BILIRUBIN 0.5 mg/dL (<0.1-1.0); TOTAL PROTEIN 8.4 g/dL (6.4-8.2)
[2021-04-10] MEDS ORDERED: ZOFRAN ODT4 MG PO (21:50)
[2021-04-10] MEDS ORDERED: NORCO5 PO (21:50)
[2021-04-10 22:07] VITALS: BP 128/70
== END 2021-04-10 22:11 | disposition home or self-care (01) ==
LOC: M.ERS 19:07
PROVIDERS: Personal Emergency Response Attendant
DX: U07.1 COVID-19 (principal); E03.9 Hypothyroidism, unspecified; I10 Essential (primary) hypertension; M06.9 Rheumatoid arthritis, unspecified; F17.210 Nicotine dependence, cigarettes, uncomplicated; Z90.710 Acquired absence of both cervix and uterus; Z98.890 Other specified postprocedural states; Z79.899 Other long term (current) drug therapy; Z88.6 Allergy status to analgesic agent; Z88.1 Allergy status to other antibiotic agents; Z88.8 Allergy status to other drugs, medicaments and biological substances